=== PATIENT | female | born 1965 | race Caucasian/White ===

== ENCOUNTER 2020-07-28 09:46 | Outpatient (CLI) | payer BC | END 2020-07-28 09:47 | disposition home or self-care (01) | LOC: CSHMRI 09:46 | PROVIDERS: ATTEND Specialist | DX: M54.12 Radiculopathy, cervical region (principal); M47.812 Spondylosis without myelopathy or radiculopathy, cervical region; E07.9 Disorder of thyroid, unspecified | CPT/HCPCS: 72141 ==

== ENCOUNTER 2020-08-12 15:38 | Outpatient (CLI) | payer BC | END 2020-08-12 15:39 | disposition home or self-care (01) | LOC: CSHULT 15:38 | PROVIDERS: ATTEND Otolaryngology Plastic Surgery within the Head & Neck | DX: E04.1 Nontoxic single thyroid nodule (principal) | CPT/HCPCS: 76536 ==